=== PATIENT | female | born 1940 | race Caucasian/White ===

== ENCOUNTER → 2019-11-17 | Outpatient (REF) | payer MEDICARE, SELFPAY ==
[2019-11-17 19:38] LABS: APPEARANCE, URINE HAZY (CLEAR); BACTERIA, URINE AUTO 1+ (NEGATIVE); BILIRUBIN, URINE AUTO NEGATIVE (NEGATIVE); BLOOD, URINE BLOOD NEGATIVE (NEGATIVE); COLOR, URINE YELLOW (YELLOW); GLUCOSE, URINE (UA) AUTO NEGATIVE (NEGATIVE); KETONE, URINE AUTO NEGATIVE (NEGATIVE); LEUKOCYTE ESTERASE, URINE AUTO 3+ (NEGATIVE); NITRITE, URINE AUTO NEGATIVE (NEGATIVE); PROTEIN, URINE AUTO NEGATIVE (NEGATIVE); RBC, URINE AUTO 3 /HPF (0-3); SPECIFIC GRAVITY URINE AUTO 1.004 (1.002-1.035); SQUAMOUS EPITHELIAL CELL UR AU 0 /HPF (0-6); UROBILINOGEN, URINE AUTO 0.2 mg/dL (0.0-2.0); WBC, URINE AUTO 62 /HPF (0-3)
== END ==
LOC: EDBD → M LAB REF 17:33
PROVIDERS: ATTEND Urology
DX: N39.0 Urinary tract infection, site not specified (principal)

== ENCOUNTER → 2019-12-06 | Outpatient (CLI) | payer MEDICARE, OTHER ==
--- NOTE | 2019-12-25 08:25 | REP ---
NON-CONTRAST OF THE ABDOMEN AND PELVIS: 12/06/19 CLINICAL: Frequent urinary tract infections. TECHNIQUE: Axial non-contrast images from the lung bases to the pubic symphysis with coronal and sagittal reformations. COMPARISON: None. FINDINGS: The lung bases demonstrate few non-calcified nodules primarily in the left lower lobe measuring up to 3mm. Liver includes 2.3cm hypodensity in the right lobe which may represent cyst. Spleen, pancreas, and bilateral adrenal glands are normal. Evidence for prior cholecystectomy noted. The kidneys demonstrate mild symmetric chronic appearing perinephric stranding without hydroureteronephrosis or nephrolithiasis. The enteric system is without obstruction or acute inflammatory process. Colonic and sigmoid diverticulosis noted without acute diverticulitis. Pelvis demonstrates normal bladder and evidence for prior hysterectomy. No ascites. No free air. No adenopathy. Atherosclerotic changes to the aorta noted without aneurysm. Musculoskeletal structures demonstrate age related degenerative changes. IMPRESSION: 1. Few non-calcified pulmonary nodules measuring up to 3mm may warrant short- term 3-6 month follow-up examination of the chest. 2. Hepatic hypodensity likely representing cyst may be followed by ultrasound. 3. Sigmoid diverticulosis without acute diverticulitis. 4. No further acute abdominal pelvic pathology appreciated. MTDD
== END ==
LOC: M RAD 13:35
PROVIDERS: ATTEND Urology
DX: K57.32 Diverticulitis of large intestine without perforation or abscess without bleeding (principal); N39.0 Urinary tract infection, site not specified; R91.8 Other nonspecific abnormal finding of lung field

== ENCOUNTER 2023-10-18 11:16 | Inpatient (IN) | payer MEDICARE, OTHER ==
[~2023-10-18] VITALS: Ht 167.6 cm; Wt 70.9 kg
[2023-10-18 14:06] VITALS: BP 132/59; TEMP 97; O2SAT 95
[2023-10-18] MEDS ORDERED: ASPI81CH33 PO (17:05)
[2023-10-18] MEDS ORDERED: HEPA100I26 IV (17:05)
[2023-10-18] MEDS ORDERED: MAGN400T2 PO (17:05)
[2023-10-18] MEDS ORDERED: POLY17PO18 PO (17:05)
[2023-10-18] MEDS ORDERED: CYMB1CAP5 PO (17:05)
[2023-10-18] MEDS ORDERED: VITA-168 PO (17:05)
[2023-10-18] MEDS ORDERED: MONT10TA97 PO (17:05)
[2023-10-18] MEDS ORDERED: LOSA50TA28 PO (17:05)
[2023-10-18] MEDS ORDERED: ATOR40TA75 PO (17:05)
[2023-10-18] MEDS ORDERED: MULT-90 PO (17:05)
[2023-10-18] MEDS ORDERED: LEVO50TA5 PO (17:05)
[2023-10-18] MEDS ORDERED: CLOP75TA2 PO (17:05)
[2023-10-18] MEDS ORDERED: IPRATROPIUM 0.5MG/ALBUTEROL 2.5MG INH SOL UD 3ML (DUONEB) NEB PRN (17:50)
[2023-10-18] MEDS ORDERED: FLUT1BLS8 INH (17:57)
[2023-10-18] MEDS ORDERED: NUCA1INJ SC (17:57)
[2023-10-18] MEDS ORDERED: CETI-24 PO (17:58)
[2023-10-18] MEDS ORDERED: HOME MED LIST COMPLETE! XX SCH (18:05)
[2023-10-18] MEDS ORDERED: PILL CUTTER 1 EACH XX PRN (19:10)
[2023-10-18 20:00] VITALS: BP 149/64; TEMP 98; O2SAT 97
[2023-10-18] MEDS: METOPROLOL TART 50 MG TAB PO SCH (20:35)
[2023-10-19] MEDS ORDERED: UNRESOLVED CLARIFICATION ENTRY XX SCH (00:01)
[2023-10-19 04:00] VITALS: BP 131/60; TEMP 97.1; O2SAT 95
[2023-10-19] MEDS: LEVOTHYROXINE 50MCG TABLET (0.05MG) PO SCH (05:39)
[2023-10-19 06:38] LABS: HEMATOCRIT 33.9 % (36.0-47.0); HEMOGLOBIN 11.8 g/dl (12.0-15.5); MEAN CORPUSCULAR HEMOGLOBIN 31.7 pg (27.0-33.0); MEAN CORPUSCULAR HGB CONC 34.8 g/dl (32.0-36.5); MEAN CORPUSCULAR VOLUME 91.1 fl (80.0-96.0); PLATELET COUNT, AUTOMATED 276 10^3/uL (150-450); RED BLOOD COUNT 3.72 10^6/uL (4.00-5.40); WHITE BLOOD COUNT 9.4 10^3/uL (4.0-10.0)
[2023-10-19 07:06] LABS: BLOOD UREA NITROGEN 14 MG/DL (9-23); CALCIUM LEVEL 9.2 MG/DL (8.3-10.6); CARBON DIOXIDE LEVEL 30 MMOL/L (20-31); CHLORIDE LEVEL 105 MMOL/L (98-107); CREATININE FOR GFR 0.61 MG/DL (0.55-1.30); GLOMERULAR FILTRATION RATE > 60.0 (>32); GLUCOSE, FASTING 91 MG/DL (74-106); POTASSIUM SERUM 4.4 MMOL/L (3.5-5.1); SODIUM LEVEL 139 MMOL/L (136-145)
[2023-10-19 07:08] LABS: THYROID STIMULATING HORMONE 2.655 uIU/ML (0.55-4.78); TOTAL 25(OH) VITAMIN D 57.2 NG/ML (20.0-100.0)
[2023-10-19] MEDS: MIRALAX *UNIT DOSE* 17GM PACKET PO SCH (09:00)
[2023-10-19] MEDS: VITAMIN D 1,000 INTERNATIONAL UNITS TABLET PO SCH (09:49)
[2023-10-19] MEDS: ASPIRIN 81MG CHEW TABLET PO SCH (09:49)
[2023-10-19] MEDS: CLOPIDOGREL 75 MG TAB PO SCH (09:50)
[2023-10-19] MEDS: MAGNESIUM OXIDE 400MG TAB (MAG-OX) PO SCH (09:50)
[2023-10-19] MEDS: MULTIVITAMINS/MINERALS THERAP 1 TAB PO SCH (09:50)
[2023-10-19] MEDS: LOSARTAN 50MG TABLET PO SCH (09:50)
[2023-10-19] MEDS: CETIRIZINE (ZyrTEC) 10 MG TAB PO SCH (09:50)
[2023-10-19] MEDS: ATORVASTATIN 20 MG TAB PO SCH (09:50)
[2023-10-19] MEDS: DULoxetine 30MG CAPSULE (CYMBALTA) PO SCH (09:50)
[2023-10-19] MEDS: MONTELUKAST 10 MG TAB PO SCH (09:50)
[2023-10-19] MEDS: ACETAMINOPHEN TAB 650MG DOSE (2X325MG) PO PRN (09:52)
[2023-10-19] MEDS: ENOXAPARIN 40MG/0.4ML SYRINGE (J1650 PER 10MG) SC SCH (09:53)
[2023-10-19] MEDS ORDERED: DILT120C31 PO (10:55)
[2023-10-19] MEDS ORDERED: METO50TA7 PO (10:55)
[2023-10-19] MEDS ORDERED: HOME MED LIST COMPLETE! XX SCH (11:00)
[2023-10-19 12:00] VITALS: BP 121/58; TEMP 97; O2SAT 96
[2023-10-19 20:00] VITALS: BP 138/63; TEMP 98; O2SAT 95
[2023-10-20 04:00] VITALS: BP 147/67; TEMP 97; O2SAT 97
[2023-10-20 12:00] VITALS: BP 120/62; TEMP 97.1; O2SAT 96
[2023-10-20 20:00] VITALS: BP 144/80; TEMP 97.4; O2SAT 100
[2023-10-21 04:00] VITALS: BP 111/53; TEMP 97.3; O2SAT 95
[2023-10-21 09:15] LABS: HEMATOCRIT 35.6 % (36.0-47.0); HEMOGLOBIN 12.5 g/dl (12.0-15.5); MEAN CORPUSCULAR HEMOGLOBIN 32.6 pg (27.0-33.0); MEAN CORPUSCULAR HGB CONC 35.1 g/dl (32.0-36.5); PLATELET COUNT, AUTOMATED 306 10^3/uL (150-450); RED BLOOD COUNT 3.83 10^6/uL (4.00-5.40); WHITE BLOOD COUNT 9.7 10^3/uL (4.0-10.0)
[2023-10-21 12:00] VITALS: BP 147/65; TEMP 97.2; O2SAT 99
[2023-10-21 20:00] VITALS: BP 122/58; TEMP 97.4; O2SAT 97
[2023-10-22 04:00] VITALS: BP 126/58; TEMP 97.8; O2SAT 94
[2023-10-22 07:27] LABS: HEMATOCRIT 35.3 % (36.0-47.0); HEMOGLOBIN 12.4 g/dl (12.0-15.5); MEAN CORPUSCULAR HEMOGLOBIN 32.2 pg (27.0-33.0); MEAN CORPUSCULAR HGB CONC 35.1 g/dl (32.0-36.5); MEAN CORPUSCULAR VOLUME 91.7 fl (80.0-96.0); PLATELET COUNT, AUTOMATED 296 10^3/uL (150-450); RED BLOOD COUNT 3.85 10^6/uL (4.00-5.40); WHITE BLOOD COUNT 9.1 10^3/uL (4.0-10.0)
[2023-10-22 07:49] LABS: BLOOD UREA NITROGEN 15 MG/DL (9-23); CALCIUM LEVEL 9.1 MG/DL (8.3-10.6); CARBON DIOXIDE LEVEL 27 MMOL/L (20-31); CHLORIDE LEVEL 105 MMOL/L (98-107); GLOMERULAR FILTRATION RATE > 60.0 (>32); GLUCOSE, FASTING 102 MG/DL (74-106); POTASSIUM SERUM 4.7 MMOL/L (3.5-5.1); SODIUM LEVEL 138 MMOL/L (136-145)
[2023-10-22 12:00] VITALS: BP 127/58; TEMP 97.6; O2SAT 98
[2023-10-22] MEDS: TRELEGY ELLIPTA INH SCH (16:01)
[2023-10-22 20:00] VITALS: BP 159/75; TEMP 97.8; O2SAT 95
[2023-10-23 04:00] VITALS: BP 134/63; TEMP 97; O2SAT 96
[2023-10-23 12:00] VITALS: BP 139/63; TEMP 97.4; O2SAT 96
[2023-10-23 20:00] VITALS: BP 128/72; TEMP 97.5; O2SAT 98
[2023-10-24 04:22] VITALS: BP 122/58; TEMP 97.3; O2SAT 97
[2023-10-24 12:00] VITALS: BP 124/56; TEMP 97.4; O2SAT 97
[2023-10-24 20:00] VITALS: BP 142/64; TEMP 97.8; O2SAT 95
[2023-10-25 04:00] VITALS: BP 139/65; TEMP 97.5; O2SAT 94
[2023-10-25 07:52] LABS: HEMATOCRIT 35.8 % (36.0-47.0); HEMOGLOBIN 12.4 g/dl (12.0-15.5); MEAN CORPUSCULAR HEMOGLOBIN 32.2 pg (27.0-33.0); MEAN CORPUSCULAR HGB CONC 34.6 g/dl (32.0-36.5); PLATELET COUNT, AUTOMATED 292 10^3/uL (150-450); RED BLOOD COUNT 3.85 10^6/uL (4.00-5.40); WHITE BLOOD COUNT 8.5 10^3/uL (4.0-10.0)
[2023-10-25 08:12] LABS: BLOOD UREA NITROGEN 16 MG/DL (9-23); CALCIUM LEVEL 9.2 MG/DL (8.3-10.6); CARBON DIOXIDE LEVEL 28 MMOL/L (20-31); CHLORIDE LEVEL 105 MMOL/L (98-107); CREATININE FOR GFR 0.65 MG/DL (0.55-1.30); GLOMERULAR FILTRATION RATE > 60.0 (>32); GLUCOSE, FASTING 106 MG/DL (74-106); POTASSIUM SERUM 4.6 MMOL/L (3.5-5.1); SODIUM LEVEL 138 MMOL/L (136-145)
[2023-10-25 12:00] VITALS: BP 126/64; TEMP 98; O2SAT 96
[2023-10-25 20:00] VITALS: TEMP 97.7; O2SAT 98
[2023-10-26 04:00] VITALS: BP 143/63; TEMP 97.5; O2SAT 96
[2023-10-26 12:00] VITALS: BP 130/66; TEMP 97.2; O2SAT 98
[2023-10-26 20:00] VITALS: BP 134/70; TEMP 97.8; O2SAT 96
[2023-10-26] MEDS ORDERED: PROHANCE 279.3MG/ML 15ML VIAL As Ordered ONE (21:20)
[2023-10-27 04:00] VITALS: BP 139/65; TEMP 98; O2SAT 96
[2023-10-27 07:51] LABS: HEMATOCRIT 31.9 % (36.0-47.0); HEMOGLOBIN 11.1 g/dl (12.0-15.5); MEAN CORPUSCULAR HEMOGLOBIN 32.2 pg (27.0-33.0); MEAN CORPUSCULAR HGB CONC 34.8 g/dl (32.0-36.5); MEAN CORPUSCULAR VOLUME 92.5 fl (80.0-96.0); PLATELET COUNT, AUTOMATED 256 10^3/uL (150-450); RED BLOOD COUNT 3.45 10^6/uL (4.00-5.40); WHITE BLOOD COUNT 9.7 10^3/uL (4.0-10.0)
[2023-10-27 09:59] VITALS: BP 139/65
[2023-10-27 11:42] LABS: HEMATOCRIT 33.3 % (36.0-47.0); HEMOGLOBIN 11.7 g/dl (12.0-15.5); MEAN CORPUSCULAR HEMOGLOBIN 32.7 pg (27.0-33.0); MEAN CORPUSCULAR HGB CONC 35.1 g/dl (32.0-36.5); PLATELET COUNT, AUTOMATED 266 10^3/uL (150-450); RED BLOOD COUNT 3.58 10^6/uL (4.00-5.40); WHITE BLOOD COUNT 9.9 10^3/uL (4.0-10.0)
[2023-10-27 12:09] LABS: BLOOD UREA NITROGEN 14 MG/DL (9-23); CALCIUM LEVEL 9.2 MG/DL (8.3-10.6); CARBON DIOXIDE LEVEL 28 MMOL/L (20-31); CHLORIDE LEVEL 103 MMOL/L (98-107); CREATININE FOR GFR 0.57 MG/DL (0.55-1.30); GLOMERULAR FILTRATION RATE > 60.0 (>32); GLUCOSE, FASTING 146 MG/DL (74-106); POTASSIUM SERUM 4.2 MMOL/L (3.5-5.1); SODIUM LEVEL 138 MMOL/L (136-145)
[2023-10-27 14:45] VITALS: BP 149/69; TEMP 98; O2SAT 98
[2023-10-27 20:00] VITALS: BP 145/65; TEMP 97.6; O2SAT 97
== END 2023-10-27 20:50 | disposition short-term general hospital (02) | DRG 57 ==
LOC: M PM&R 14:06
PROVIDERS: ADMIT Student in an Organized Health Care Education/Training Program; ATTEND Student in an Organized Health Care Education/Training Program
DX: I69.351 Hemiplegia and hemiparesis following cerebral infarction affecting right dominant side (principal); I50.22 Chronic systolic (congestive) heart failure; C71.9 Malignant neoplasm of brain, unspecified; C85.90 Non-Hodgkin lymphoma, unspecified, unspecified site; I69.311 Memory deficit following cerebral infarction; I69.320 Aphasia following cerebral infarction; J44.9 Chronic obstructive pulmonary disease, unspecified; J45.909 Unspecified asthma, uncomplicated; F32.A Depression, unspecified; I11.0 Hypertensive heart disease with heart failure; E03.9 Hypothyroidism, unspecified; E55.9 Vitamin D deficiency, unspecified; R26.89 Other abnormalities of gait and mobility; R29.6 Repeated falls; Z85.3 Personal history of malignant neoplasm of breast; M54.2 Cervicalgia; Z90.13 Acquired absence of bilateral breasts and nipples; Z87.891 Personal history of nicotine dependence; Z74.09 Other reduced mobility; Z74.1 Need for assistance with personal care; Z79.890 Hormone replacement therapy; Z79.82 Long term (current) use of aspirin; Z79.899 Other long term (current) drug therapy; Z88.1 Allergy status to other antibiotic agents; Z88.2 Allergy status to sulfonamides; Z88.8 Allergy status to other drugs, medicaments and biological substances; Z91.048 Other nonmedicinal substance allergy status; Z87.440 Personal history of urinary (tract) infections

== ENCOUNTER 2023-11-09 15:20 | Inpatient (IN) | payer MEDICARE, OTHER ==
[~2023-11-09] VITALS: Ht 167.6 cm; Wt 72.1 kg
[~2023-11-09 15:20] MED LIST: ASPI81CH33 PO; ATOR40TA75 PO; CETI-24 PO; CLOP75TA2 PO; CYMB1CAP5 PO; DILT120C31 PO; FLUT1BLS8 INH; HEPA100I26 IV; LEVO50TA5 PO; LOSA50TA28 PO; MAGN400T2 PO; METO50TA7 PO; MONT10TA97 PO; MULT-90 PO; NUCA1INJ SC; POLY17PO18 PO; VITA-168 PO
[2023-11-09] MEDS ORDERED: LABETALOL 100MG/20ML VIAL IV PRN (15:55)
[2023-11-09] MEDS ORDERED: hydrALAZINE 20MG/ML 1ML VIAL IV PRN (15:55)
[2023-11-09 17:30] VITALS: BP 141/64; TEMP 99.2; O2SAT 96
[2023-11-09] MEDS ORDERED: CARD120C3 PO (19:05)
[2023-11-09] MEDS ORDERED: BUDE10.7 INH (19:05)
[2023-11-09] MEDS ORDERED: SENN-186 PO (19:05)
[2023-11-09] MEDS ORDERED: ACET650T15 PO (19:05)
[2023-11-09] MEDS ORDERED: DEXA4TA PO (19:05)
[2023-11-09] MEDS ORDERED: KEPP1TAB PO (19:05)
[2023-11-09] MEDS ORDERED: ACET1TAB55 PO (19:14)
[2023-11-09] MEDS ORDERED: MILKSUS3 PO (19:14)
[2023-11-09] MEDS ORDERED: TREL1AER PO (19:14)
[2023-11-09] MEDS ORDERED: HOME MED LIST COMPLETE! XX SCH (19:15)
[2023-11-09 20:00] VITALS: BP 145/66; TEMP 97.9; O2SAT 94
[2023-11-09] MEDS: ATORVASTATIN 20 MG TAB PO SCH (20:23)
[2023-11-09] MEDS: DULoxetine 30MG CAPSULE (CYMBALTA) PO SCH (20:23)
[2023-11-09] MEDS: **hydrALAZINE** 10 MG TAB PO PRN (20:24)
[2023-11-09] MEDS: levETIRAcetam 250MG TABLET (KEPPRA) PO SCH (20:24)
[2023-11-09] MEDS: MONTELUKAST 10 MG TAB PO SCH (20:24)
[2023-11-09] MEDS: dexAMETHasone 4 MG TAB PO SCH (23:52)
[2023-11-10] VITALS (7 sets, daily range): BP systolic 132–155; BP diastolic 53–70; TEMP 97.2–98.5; O2SAT 92–97
[2023-11-10] MEDS: LEVOTHYROXINE 50MCG TABLET (0.05MG) PO SCH (05:22)
[2023-11-10 07:08] LABS: BASO % 0.1 % (0.0-1.0); HEMATOCRIT 32.7 % (36.0-47.0); HEMOGLOBIN 11.7 g/dl (12.0-15.5); LYMPH # 0.8 10^3/uL (1.5-5.0); LYMPH % 4.6 % (24.0-44.0); MEAN CORPUSCULAR HEMOGLOBIN 32.1 pg (27.0-33.0); MEAN CORPUSCULAR HGB CONC 35.8 g/dl (32.0-36.5); MEAN CORPUSCULAR VOLUME 89.6 fl (80.0-96.0); MONO # 1.7 10^3/uL (0.0-0.8); MONO % 10.1 % (2.0-8.0); NEUTROPHILS # 13.8 10^3/uL (1.5-8.5); NEUTROPHILS % 82.5 % (36.0-66.0); PLATELET COUNT, AUTOMATED 159 10^3/uL (150-450); RED BLOOD COUNT 3.65 10^6/uL (4.00-5.40); WHITE BLOOD COUNT 16.8 10^3/uL (4.0-10.0)
[2023-11-10 07:31] LABS: ALBUMIN 2.5 G/DL (3.2-5.2); ALKALINE PHOSPHATASE 44 U/L (46-116); ALT/SGPT 41 U/L (7.0-40); AST/SGOT 24 U/L (<34); BILIRUBIN,TOTAL 0.7 MG/DL (0.3-1.2); BLOOD UREA NITROGEN 26 MG/DL (9-23); CALCIUM LEVEL 8.4 MG/DL (8.3-10.6); CARBON DIOXIDE LEVEL 26 MMOL/L (20-31); CHLORIDE LEVEL 102 MMOL/L (98-107); CREATININE FOR GFR 0.52 MG/DL (0.55-1.30); GLOMERULAR FILTRATION RATE > 60.0 (>32); GLUCOSE, FASTING 147 MG/DL (74-106); POTASSIUM SERUM 4.4 MMOL/L (3.5-5.1); SODIUM LEVEL 136 MMOL/L (136-145)
[2023-11-10] MEDS: MULTIVITAMINS/MINERALS THERAP 1 TAB PO SCH (07:33)
[2023-11-10] MEDS: VITAMIN D 1,000 INTERNATIONAL UNITS TABLET PO SCH (07:33)
[2023-11-10] MEDS: LOSARTAN 50MG TABLET PO SCH (07:34)
[2023-11-10] MEDS: dilTIAZem 120MG **CD** CAPSULE PO SCH (07:34)
[2023-11-10] MEDS: NYSTATIN CREAM 15GM EXT SCH (20:15)
[2023-11-10] MEDS: ACETAMINOPHEN TAB 650MG DOSE (2X325MG) PO PRN (20:17)
[2023-11-10] MEDS ORDERED: ALBUTEROL SULFATE 2.5MG/0.5ML INH NEB SOLN NEB PRN (22:00)
[2023-11-11 02:00] VITALS: BP 160/62; TEMP 97.1; O2SAT 95
[2023-11-11 04:00] VITALS: BP 140/68
[2023-11-11] MEDS: ENOXAPARIN 40MG/0.4ML SYRINGE (J1650 PER 10MG) SC SCH (07:14)
[2023-11-11 07:20] VITALS: BP 140/60
[2023-11-11 08:47] VITALS: BP 160/70
[2023-11-11 12:48] VITALS: BP 154/78; TEMP 97.1; O2SAT 97
[2023-11-11] MEDS: METOPROLOL TART 12.5 MG PER 1/2 TAB PO SCH (12:50)
[2023-11-11 20:00] VITALS: BP 150/60; TEMP 97.1; O2SAT 95
[2023-11-12] MEDS ORDERED: UNRESOLVED PATIENT OWN MED ORDER XX SCH (00:01)
[2023-11-12 04:00] VITALS: BP 195/77; TEMP 97; O2SAT 95
[2023-11-12 04:15] VITALS: BP 168/78
[2023-11-12 07:05] LABS: HEMATOCRIT 32.7 % (36.0-47.0); HEMOGLOBIN 11.7 g/dl (12.0-15.5); MEAN CORPUSCULAR HEMOGLOBIN 32.1 pg (27.0-33.0); MEAN CORPUSCULAR HGB CONC 35.8 g/dl (32.0-36.5); MEAN CORPUSCULAR VOLUME 89.6 fl (80.0-96.0); PLATELET COUNT, AUTOMATED 125 10^3/uL (150-450); RED BLOOD COUNT 3.65 10^6/uL (4.00-5.40); WHITE BLOOD COUNT 12.5 10^3/uL (4.0-10.0)
[2023-11-12 07:26] LABS: BLOOD UREA NITROGEN 24 MG/DL (9-23); CALCIUM LEVEL 8.2 MG/DL (8.3-10.6); CARBON DIOXIDE LEVEL 27 MMOL/L (20-31); CHLORIDE LEVEL 104 MMOL/L (98-107); CREATININE FOR GFR 0.41 MG/DL (0.55-1.30); GLOMERULAR FILTRATION RATE > 60.0 (>32); GLUCOSE, FASTING 159 MG/DL (74-106); POTASSIUM SERUM 4.2 MMOL/L (3.5-5.1); SODIUM LEVEL 136 MMOL/L (136-145)
[2023-11-12] MEDS ORDERED: MEPO100S SQ (10:27)
[2023-11-12] MEDS ORDERED: HOME MED LIST COMPLETE! XX SCH (10:40)
[2023-11-12] MEDS: TRELLEGY ELLIPTA INH SCH (11:09)
[2023-11-12 12:00] VITALS: BP 141/65; TEMP 97.4; O2SAT 95
[2023-11-12] MEDS: **hydrALAZINE HCL** 25 MG TAB PO SCH (12:11)
[2023-11-12] MEDS: MEPOLIZUMAB SQ ONE (14:43)
[2023-11-12] MEDS ORDERED: TEMO140C14 PO (17:33)
[2023-11-12] MEDS ORDERED: ONDA-84 PO (18:03)
[2023-11-12] MEDS ORDERED: BACT800T5 PO (18:04)
[2023-11-12 20:00] VITALS: BP 120/58; TEMP 97; O2SAT 95
[2023-11-13 04:00] VITALS: BP 126/62; TEMP 97.7; O2SAT 94
[2023-11-13 07:07] LABS: HEMATOCRIT 31.4 % (36.0-47.0); HEMOGLOBIN 11.2 g/dl (12.0-15.5); MEAN CORPUSCULAR HGB CONC 35.7 g/dl (32.0-36.5); MEAN CORPUSCULAR VOLUME 89.7 fl (80.0-96.0); PLATELET COUNT, AUTOMATED 122 10^3/uL (150-450); WHITE BLOOD COUNT 13.3 10^3/uL (4.0-10.0)
[2023-11-13 08:01] VITALS: BP_SYST 142; BP_SYST 159; BP_DIAS 67; BP_DIAS 70
[2023-11-13 09:50] VITALS: BP 137/65
[2023-11-13 12:00] VITALS: BP 140/65; TEMP 97.1; O2SAT 96
[2023-11-13 20:00] VITALS: BP 142/62; TEMP 97.2; O2SAT 95
[2023-11-14 04:00] VITALS: BP 150/68; TEMP 98; O2SAT 91
[2023-11-14 11:37] VITALS: BP 140/65; TEMP 98.1; O2SAT 96
[2023-11-14 20:00] VITALS: BP 148/66; TEMP 97.7; O2SAT 95
[2023-11-15 04:00] VITALS: BP 153/67; TEMP 97.3; O2SAT 95
[2023-11-15 06:58] LABS: HEMATOCRIT 32.2 % (36.0-47.0); HEMOGLOBIN 11.5 g/dl (12.0-15.5); MEAN CORPUSCULAR HEMOGLOBIN 31.9 pg (27.0-33.0); MEAN CORPUSCULAR HGB CONC 35.7 g/dl (32.0-36.5); MEAN CORPUSCULAR VOLUME 89.4 fl (80.0-96.0); PLATELET COUNT, AUTOMATED 102 10^3/uL (150-450); WHITE BLOOD COUNT 11.2 10^3/uL (4.0-10.0)
[2023-11-15 07:24] LABS: ALBUMIN 2.6 G/DL (3.2-5.2); ALKALINE PHOSPHATASE 43 U/L (46-116); ALT/SGPT 51 U/L (7.0-40); AST/SGOT 24 U/L (<34); BILIRUBIN,TOTAL 0.7 MG/DL (0.3-1.2); BLOOD UREA NITROGEN 24 MG/DL (9-23); CALCIUM LEVEL 8.4 MG/DL (8.3-10.6); CARBON DIOXIDE LEVEL 25 MMOL/L (20-31); CHLORIDE LEVEL 103 MMOL/L (98-107); CREATININE FOR GFR 0.42 MG/DL (0.55-1.30); GLOMERULAR FILTRATION RATE > 60.0 (>32); GLUCOSE, FASTING 167 MG/DL (74-106); POTASSIUM SERUM 4.4 MMOL/L (3.5-5.1); SODIUM LEVEL 136 MMOL/L (136-145)
[2023-11-15 07:59] VITALS: BP 130/70
[2023-11-15 11:36] VITALS: BP 153/65; TEMP 97.3; O2SAT 98
[2023-11-15 11:44] LABS: BASO % 0.1 % (0.0-1.0); HEMATOCRIT 32.1 % (36.0-47.0); HEMOGLOBIN 11.5 g/dl (12.0-15.5); LYMPH # 0.6 10^3/uL (1.5-5.0); LYMPH % 4.5 % (24.0-44.0); MEAN CORPUSCULAR HEMOGLOBIN 32.6 pg (27.0-33.0); MEAN CORPUSCULAR HGB CONC 35.8 g/dl (32.0-36.5); MEAN CORPUSCULAR VOLUME 90.9 fl (80.0-96.0); MONO # 0.6 10^3/uL (0.0-0.8); MONO % 4.9 % (2.0-8.0); NEUTROPHILS # 10.9 10^3/uL (1.5-8.5); NEUTROPHILS % 89.6 % (36.0-66.0); PLATELET COUNT, AUTOMATED 101 10^3/uL (150-450); RED BLOOD COUNT 3.53 10^6/uL (4.00-5.40); WHITE BLOOD COUNT 12.1 10^3/uL (4.0-10.0)
[2023-11-15 12:31] LABS: COLLAGEN EPINEPHRINE 80 SECONDS (74-162)
[2023-11-15 13:03] LABS: D-DIMER QUANT 1.5 ug/mL (<0.5); INR 1.06; PROTHROMBIN TIME 13.5 SECONDS (12.5-14.5)
[2023-11-15] MEDS ORDERED: PROHANCE 279.3MG/ML 15ML VIAL As Ordered ONE (14:44)
[2023-11-15] MEDS: MOM 30ML SUSPENSION UDC PO ONE (16:32)
[2023-11-15] MEDS: MIRALAX *UNIT DOSE* 17GM PACKET PO SCH (16:32)
[2023-11-15 16:35] VITALS: BP 150/70
[2023-11-15 20:00] VITALS: BP 124/68; TEMP 96.7; O2SAT 98
[2023-11-15 23:58] VITALS: BP 112/64
[2023-11-16 04:00] VITALS: BP 156/76; TEMP 96.1; O2SAT 97
[2023-11-16 07:37] VITALS: BP 150/78
[2023-11-16] MEDS: dexAMETHasone 4 MG TAB PO SCH (07:39)
[2023-11-16 11:03] VITALS: BP 150/70
[2023-11-16 12:00] VITALS: BP 130/65; TEMP 98.2; O2SAT 98
[2023-11-16 12:23] LABS: HEMATOCRIT 34.4 % (36.0-47.0); HEMOGLOBIN 12.1 g/dl (12.0-15.5); MEAN CORPUSCULAR HEMOGLOBIN 31.9 pg (27.0-33.0); MEAN CORPUSCULAR HGB CONC 35.2 g/dl (32.0-36.5); MEAN CORPUSCULAR VOLUME 90.8 fl (80.0-96.0); RED BLOOD COUNT 3.79 10^6/uL (4.00-5.40); WHITE BLOOD COUNT 17.7 10^3/uL (4.0-10.0)
[2023-11-16 12:58] LABS: ALBUMIN 2.8 G/DL (3.2-5.2); ALKALINE PHOSPHATASE 46 U/L (46-116); ALT/SGPT 57 U/L (7.0-40); AST/SGOT 24 U/L (<34); BILIRUBIN,TOTAL 0.9 MG/DL (0.3-1.2); BLOOD UREA NITROGEN 23 MG/DL (9-23); CALCIUM LEVEL 8.5 MG/DL (8.3-10.6); CARBON DIOXIDE LEVEL 27 MMOL/L (20-31); CHLORIDE LEVEL 102 MMOL/L (98-107); CREATININE FOR GFR 0.43 MG/DL (0.55-1.30); GLOMERULAR FILTRATION RATE > 60.0 (>32); GLUCOSE, FASTING 174 MG/DL (74-106); POTASSIUM SERUM 4.3 MMOL/L (3.5-5.1); SODIUM LEVEL 137 MMOL/L (136-145); TOTAL PROTEIN 5.4 G/DL (5.7-8.2)
[2023-11-16 12:59] LABS: PLATELET COUNT, AUTOMATED 98 10^3/uL (150-450)
[2023-11-16] MEDS ORDERED: MIRA33506 PO (14:49)
[2023-11-16] MEDS ORDERED: HYDR25TA87 PO (14:49)
[2023-11-16] MEDS ORDERED: METO1TAB87 PO (14:49)
[2023-11-16] MEDS ORDERED: VITAD1000T PO (14:49)
[2023-11-16] MEDS ORDERED: LOSA50TA28 PO (14:49)
[2023-11-16] MEDS ORDERED: DEXA4TA PO (14:49)
[2023-11-16] MEDS ORDERED: KEPP1TAB PO (14:49)
[2023-11-16 15:42] LABS: BASO % 0.1 % (0.0-1.0); LYMPH # 0.5 10^3/uL (1.5-5.0); LYMPH % 2.7 % (24.0-44.0); MONO # 0.5 10^3/uL (0.0-0.8); MONO % 2.6 % (2.0-8.0); NEUTROPHILS # 17.2 10^3/uL (1.5-8.5); NEUTROPHILS % 93.7 % (36.0-66.0); WHITE BLOOD COUNT 18.3 10^3/uL (4.0-10.0)
[2023-11-16] MEDS: MOM 30ML SUSPENSION UDC PO ONE (16:27)
[2023-11-16 17:07] VITALS: BP 160/70
[2023-11-16 20:00] VITALS: BP 128/62; TEMP 97; O2SAT 97
[2023-11-16] MEDS: cefTRIAXone SOD 1 GM in D5W MINI-BAG PLUS 50 ML IV SCH (23:58)
[2023-11-17 04:00] VITALS: BP 160/72; TEMP 97.1; O2SAT 94
[2023-11-17 07:24] LABS: HEMATOCRIT 33.1 % (36.0-47.0); HEMOGLOBIN 11.8 g/dl (12.0-15.5); MEAN CORPUSCULAR HEMOGLOBIN 32.3 pg (27.0-33.0); MEAN CORPUSCULAR HGB CONC 35.6 g/dl (32.0-36.5); MEAN CORPUSCULAR VOLUME 90.7 fl (80.0-96.0); RED BLOOD COUNT 3.65 10^6/uL (4.00-5.40); WHITE BLOOD COUNT 12.2 10^3/uL (4.0-10.0)
[2023-11-17 07:27] LABS: PLATELET COUNT, AUTOMATED 84 10^3/uL (150-450)
[2023-11-17] MEDS ORDERED: ONDA-84 PO (11:35)
[2023-11-17] MEDS ORDERED: LEVO1TAB39 PO (11:35)
[2023-11-17 12:00] VITALS: BP 164/70; TEMP 97.4; O2SAT 97
[2023-11-17 12:55] VITALS: BP 164/70
== END 2023-11-17 14:25 | disposition home health service (06) | DRG 56 ==
LOC: M PM&R 15:20 → UNDOADMIN 15:20 → M PM&R 17:40
PROVIDERS: ADMIT Student in an Organized Health Care Education/Training Program; ATTEND Student in an Organized Health Care Education/Training Program
DX: G81.91 Hemiplegia, unspecified affecting right dominant side (principal); G93.6 Cerebral edema; C71.1 Malignant neoplasm of frontal lobe; R47.01 Aphasia; I50.22 Chronic systolic (congestive) heart failure; T83.511A Infection and inflammatory reaction due to indwelling urethral catheter, initial encounter; J44.9 Chronic obstructive pulmonary disease, unspecified; J45.909 Unspecified asthma, uncomplicated; F32.A Depression, unspecified; I11.0 Hypertensive heart disease with heart failure; E03.9 Hypothyroidism, unspecified; M62.81 Muscle weakness (generalized); R26.89 Other abnormalities of gait and mobility; R48.2 Apraxia; R29.6 Repeated falls; M81.0 Age-related osteoporosis without current pathological fracture; Z91.048 Other nonmedicinal substance allergy status; Z74.09 Other reduced mobility; Z74.1 Need for assistance with personal care; R91.1 Solitary pulmonary nodule; Z66 Do not resuscitate; R56.9 Unspecified convulsions; R13.12 Dysphagia, oropharyngeal phase; L89.152 Pressure ulcer of sacral region, stage 2; L89.151 Pressure ulcer of sacral region, stage 1; Z90.49 Acquired absence of other specified parts of digestive tract; Z90.13 Acquired absence of bilateral breasts and nipples; Z85.3 Personal history of malignant neoplasm of breast; Z79.899 Other long term (current) drug therapy; Z79.890 Hormone replacement therapy; Z88.2 Allergy status to sulfonamides; Z88.8 Allergy status to other drugs, medicaments and biological substances; D69.6 Thrombocytopenia, unspecified